=== PATIENT | female | born 1975 | race Hispanic/Latino ===

== ENCOUNTER → 2020-06-01 | Day surgery (SDC) | payer BC, OTHER ==
[~2020-06-01] MED LIST: FENTANYL CITRATE/PF 100MCG/2 ML INJ ONE; HYOSCYAMINE 0.125 MG TAB ONE; LIDOCAINE HCL 2% LOCAL INJ 5 ML SDV VIAL INJ ONE; MIDAZOLAM HCL 2 MG/2 ML VIAL ONE; PROPOFOL IV EMULSION 10 MG/ML 20 ML VIAL ONE
[2020-06-01 14:01] VITALS: BP 113/81
--- NOTE | 2020-06-01 15:14 | Operative Report ---
DATE OF PROCEDURE: 06/01/2020 SURGEON: Vinod Wiley MD PROCEDURE: Colonoscopy with polypectomy and biopsies. INDICATIONS FOR COLONOSCOPY: The patient is status post colon resection for rectal tumor. She is in for colorectal cancer screening. MEDICATIONS: The patient was done under MAC, please see anesthesiologist's note. PROCEDURE IN DETAIL: decubitus position, flexible fiberoptic Olympus colonoscope was inserted into the rectum with ease and advanced all the way was noted in the junction of the cecum and the ascending colon that was biopsied. The rest of the ascending and transverse appeared to be within normal limits. A minute polyp was hot biopsied from the proximal descending colon. The rest of the descending and sigmoid as well as the rectum appeared to be within normal limits. Anastomosis was noted in the distal rectum. The scope was then retroflexed into the distal rectum and there were small internal hemorrhoids and none actively bleeding. The scope was then straightened out, it was subsequently withdrawn. The patient tolerated the procedure well. IMPRESSION: 1. Approximately 8 mm submucosal nodule of the cecum, biopsied. 2. Descending colon polyp, hot biopsied. 3. Anastomosis, distal rectum intact. 4. Internal hemorrhoids, none actively bleeding. PLAN: Follow up histology. Initiate high-fiber, low-fat diet. Initiate high-fiber supplement. The patient might benefit from a followup colonoscopy in 1 to 2 years. Pending pathology report. Vinod Wiley MD [facility] [place] [place] /[id number] cc: Gurjit Bhatti MD
== END | disposition home or self-care (01) ==
LOC: OR 10:05 → EDSEX 12:00
PROVIDERS: ATTEND Internal Medicine Gastroenterology
DX: Z12.11 Encounter for screening for malignant neoplasm of colon (principal); Z85.048 Personal history of other malignant neoplasm of rectum, rectosigmoid junction, and anus; K63.5 Polyp of colon; K55.20 Angiodysplasia of colon without hemorrhage; K63.89 Other specified diseases of intestine; Z98.0 Intestinal bypass and anastomosis status; K64.8 Other hemorrhoids; Z68.28 Body mass index [BMI] 28.0-28.9, adult
CPT/HCPCS: 45380; 45384; 81025; J2001; J2250; J2704; J3010; U0002; 45378

== ENCOUNTER → 2023-02-18 | Day surgery (SDC) | payer BC, OTHER ==
[~2023-02-18] MED LIST changes: +BENADRYL25 M1 PO; -FENTANYL CITRATE/PF 100MCG/2 ML INJ ONE; +GLUCAGON FOR INJ 1 MG VIAL ONE; -HYOSCYAMINE 0.125 MG TAB ONE; +HYOSCYAMINE SULFATE 0.5 MG/ML INJ ONE; +METOCLOPRAMIDE HCL 10 MG/2ML VIAL ONE; -MIDAZOLAM HCL 2 MG/2 ML VIAL ONE; +ONDANSETRON HCL INJ 2MG/ML 2ML 2 MG/ML VIAL ONE; +POVIDONE IODINE 0.05% 0.05 % ML PO ONE; +PROPOFOL IV EMULSION 50 ML IV ONE
[2023-02-18 14:02] VITALS: TEMP 98.2
[2023-02-18 14:25] VITALS: BP 121/76; PULSE 63; RESP 14; O2SAT 99
== END | disposition home or self-care (01) ==
LOC: OR 12:31
PROVIDERS: ATTEND Internal Medicine Gastroenterology
DX: Z12.11 Encounter for screening for malignant neoplasm of colon (principal); D12.2 Benign neoplasm of ascending colon; K62.1 Rectal polyp; Z85.048 Personal history of other malignant neoplasm of rectum, rectosigmoid junction, and anus; Z98.0 Intestinal bypass and anastomosis status; K64.8 Other hemorrhoids; Z71.3 Dietary counseling and surveillance; Z71.89 Other specified counseling; Z01.810 Encounter for preprocedural cardiovascular examination; Z68.28 Body mass index [BMI] 28.0-28.9, adult; Z86.16 Personal history of COVID-19
CPT/HCPCS: 45380; 45385; 81025; 93005; J1610; J1980; J2001; J2405; J2704 ×2; J2765